=== PATIENT | male | born 1980 ===

== ENCOUNTER 2018-09-17 07:08 | Inpatient (IN) | payer OTHER ==
[~2018-09-17] VITALS: Ht 243.8 cm; Wt 5.0 kg
[2018-09-17] MEDS ORDERED: RANITIDINE HCL300 M1 PO (07:12)
[2018-09-17] MEDS ORDERED: PHENAZOPYRIDIN200 MG PO (07:13)
[2018-09-17] MEDS ORDERED: CIPRO500 MG/5 M PO (07:13)
--- NOTE | 2018-09-17 07:14 | NUR ---
SE RECIBE AL PACIENTE ORIENTADO Y ALERTA EN JUAN GALINA ESFERAS. PACIENTE REFIERE QUE VIENE POR JALEEL DOLOR EN EL LADO YONIS DEL KAROL (FLANK). PACIENTE REFIERE QUE DESDE CALE ESTA SINTIENDO LOS SINTOMAS SHEFALI HOY YA NO LO SOPORTA.
--- NOTE | 2018-09-17 07:43 | NUR ---
SE ORIENTA PTE SOBRE TRATAMIENTO. SE THEO MUESTRAS DE MANISHA Y SE CANALIZA PERIFERALMENTE POR YOSI SOLOMON QUIEN ADMINISTRA MEDICAMENTOS ORDENADOS. PTE PENDIENTE A RE-EVALUACION POR MEDICO.
== END 2018-09-28 13:48 | disposition home or self-care (01) | DRG 392 ==
LOC: ER 07:08 → SEC-K 10:44 → SURG 10:44
PROVIDERS: ADMIT Surgery
PROC: BW21ZZZ Computerized Tomography (CT Scan) of Abdomen and Pelvis (ICD-10-PCS; principal; 2018-09-23)
DX: K57.20 Diverticulitis of large intestine with perforation and abscess without bleeding (principal); N17.8 Other acute kidney failure; I49.8 Other specified cardiac arrhythmias

== ENCOUNTER 2018-10-04 23:54 | Emergency (ER) | payer OTHER ==
[~2018-10-04] VITALS: Ht 172.7 cm; Wt 73.9 kg
[~2018-10-04 23:54] MED LIST: CIPRO500 MG/5 M PO; PHENAZOPYRIDIN200 MG PO; RANITIDINE HCL300 M1 PO
--- NOTE | 2018-10-05 00:10 | NUR ---
PTE ALERTA Y ORIENTADO X3 ACOMPANADO. PTE REFIERE DOLOR ABDOMINAL DESDE HOY Y REFIERE QUE LA SEMANA PASADA LO ATENDIO DR.MARQUEZ STEPHENS Y LO JIMMIE DE STACIE POR DIVERTICULOS.
--- NOTE | 2018-10-05 00:42 | NUR ---
MS M [place] ORIENTA A PACIENTE SOBRE ORDENES MEDICAS, COLECTA MUESTRAS DE MANISHA, CANALIZA VENA Y SE ADMINISTRAN MEDICAMENTOS.
--- NOTE | 2018-10-05 07:56 | NUR ---
SE RECIBE PACIENTE DE TURNO ANTERIOR.EN CAMA,ESTA ALERTA Y ORIENTADO. RESPIRANDO SIN DIFICULTAD.AREA DE VENOPUNCION ESTA LIMPIA Y SECA,DIONNE DE EDEMA. ES ORIENTADO SOBRE PROCEDIMIENTOS A LLEVARSE A CABO,LO CUAL REFIERE COMPRENDER.MANTENIDA CON CABEZERA A [address] GRADOS,BARANDAS ELEVADAS,TIMBRE ACCESIBLE Y EN OBSERVACION BRANNON POR CAMBIOS EN CONDICION.
== END 2018-10-05 10:55 | disposition left against medical advice (07) ==
LOC: ER 23:54 → SEC-K 10-05 09:47 → ER 10-05 09:47 → SURH 10-05 10:14 → SEC-K 10-05 10:14 → ER 10-05 10:55 → SEC-K 10-05 11:36 → SURH 10-05 11:36
DX: K57.92 Diverticulitis of intestine, part unspecified, without perforation or abscess without bleeding (principal); R10.32 Left lower quadrant pain